=== PATIENT | female | born 1990 | race Caucasian/White ===

== ENCOUNTER 2016-08-15 10:37 | Emergency (ER) | payer OTHER ==
[~2016-08-15] VITALS: Ht 175.3 cm; Wt 66.2 kg
[2016-08-15 10:37] VITALS: BP 113/73
[2016-08-15] MEDS ORDERED: CLINDAMYCIN 900MG PREMIX 50 ML IV ONE (11:15)
[2016-08-15] MEDS ORDERED: DEXAMETHASONE SOD PHOS 10 MG/ML VIAL IM ONE (11:15)
[2016-08-15] MEDS ORDERED: IV NORMAL SALINE 1,000ML 1,000 ML IV ONE (11:15)
[2016-08-15 11:19] LABS: BASO # 0.1 x10^3/uL (0.0-0.2); BASO % 0 % (0-3); EOS % 0 % (0-3); HEMATOCRIT 40.9 % (36.0-47.0); HEMOGLOBIN 13.7 g/dL (12.0-15.5); LYMPH # 1.7 x10^3/uL (1.0-4.8); LYMPH % 9 % (24-48); MEAN CORPUSCULAR HEMOGLOBIN 30 pg (25-35); MEAN CORPUSCULAR HGB CONC 34 g/dL (31-37); MEAN CORPUSCULAR VOLUME 89 fL (79-100); MONO # 1.6 x10^3/uL (0.0-1.1); MONO % 8 % (0-9); NEUT # 16.9 x10^3uL (1.8-7.7); NEUT % 83 % (31-73); PLATELET COUNT 219 x10^3/uL (140-400); RED BLOOD COUNT 4.62 x10^6/uL (3.50-5.40); WHITE BLOOD COUNT 20.3 x10^3/uL (4.0-11.0)
--- NOTE | 2016-08-15 11:25 | ED.ADGEN ---
Past History Past Medical History: No Pertinent History Past Surgical History: Alcohol Use: None Drug Use: None Adult General Chief Complaint Chief Complaint Sore throat, painful swallowing HPI HPI Patient is a 25-year-old female with history of rheumatoid arthritis affecting her Joni recurrent tonsillitis who presents with persistent sore throat for the past 3 days. Patient was seen at an outside facility yesterday and diagnosed with bacterial pharyngitis. She reports her strep test was negative, but that she was placed on a Z-Andrey. She has had 2 doses of medication. She reports worsening throat pain today. She denies fever, drooling or hoarseness. Patient does have some with swallowing secondary to pain. Review of Systems Review of Systems Review symptoms as per history of present illness. All other review symptoms are negative. Current Medications Current Medications Current Medications Medications (Trade) Dose Ordered Sig/Sabrina Start Time Stop Time Status Last Admin Dose Admin Clindamycin Phosphate 50 ml @ 100 mls/hr 1X ONCE 08/15/16 11:15 08/15/16 11:44 08/15/16 11:19 100 MLS/HR Dexamethasone Sodium Phosphate (Decadron) 10 mg 1X ONCE 08/15/16 11:15 08/15/16 11:16 DC Sodium Chloride 1,000 ml @ 1,000 mls/hr 1X ONCE 08/15/16 11:15 08/15/16 12:14 08/15/16 11:18 1,000 MLS/HR Allergies Allergies Allergies Coded Allergies Type Severity Reaction Last Updated Verified No Known Drug Allergies 08/15/16 No Physical Exam Physical Exam Constitutional: She is, tearful, nontoxic. HENT: Normocephalic, atraumatic, bilateral external ears normal, limited ability to open mouth, right peritonsillar fullness/cellulitis, uvula midline. Eyes: PERRLA, EOMI, conjunctiva normal. Neck: Normal range of motion, supple, submandibular lymphadenopathy Cardiovascular: Tachycardic. Lungs & Thorax: Bilateral breath sounds clear to auscultation. Current Patient Data Vital Signs Vital Signs Date Time Temp Pulse Resp B/P (MAP) Pulse Ox O2 Delivery O2 Flow Rate FiO2 08/15/16 11:10 110 18 98 Room Air 08/15/16 10:37 98.2 EKG EKG [] Radiology/Procedures Radiology/Procedures [] Course & Med Decision Making Course & Med Decision Making Pertinent Labs and Imaging studies reviewed. (See chart for details) [Pharyngeal cellulitis with concern for right peritonsillar abscess. No ENT available at this facility. Patient's is a poor candidate for office follow-up given her failure to respond to outpatient therapy. IV clindamycin and Decadron given. Lab work culture and culture obtained. Patient accepted by Dr. Starla Fry to emergency department for surgical evaluation.] Final Impression Final Impression [] Problems: Dragon Disclaimer Dragon Disclaimer This electronic medical record was generated, in whole or in part, using a voice recognition dictation system. NANCY MATHEW DO Aug 15, 2016 11:25
[2016-08-15 11:34] LABS: C REACTIVE PROTEIN 159.8 mg/L (0-3.3); CALCIUM 8.9 mg/dL (8.5-10.1); CREATININE 0.9 mg/dL (0.6-1.0); GFR 75.1; POTASSIUM 3.6 mmol/L (3.5-5.1); TOTAL BILIRUBIN 0.7 mg/dL (0.2-1.0); TOTAL PROTEIN 8.2 g/dL (6.4-8.2)
[2016-08-15 11:45] LABS: PREG TEST PT QUAL NEGATIVE (NEG)
[2016-08-15] MEDS ORDERED: DEXAMETHASONE SOD PHOS 10 MG/ML VIAL IV ONE (11:45)
[2016-08-15 12:12] LABS: % BANDS 2 % (0-9); % LYMPHS 12 % (24-48); % MONOS 9 % (0-10); % SEGS 77 % (35-66)
[2016-08-15 12:13] LABS: PLT ESTIMATE ADEQUATE (ADEQUATE)
[2016-08-15] MEDS ORDERED: ONDANSETRON PF 4 MG/2 ML VIAL. IV ONE (12:45)
== END 2016-08-15 12:35 | disposition short-term general hospital (02) ==
LOC: ER 10:37
DX: J36 Peritonsillar abscess (principal)
CPT/HCPCS: 36415; 80053; 84703; 85007; 85027; 86140; 87040; 96365; 96375; 99285; J1100; J2405; J3490; J7030

== ENCOUNTER 2016-10-14 15:48 | Emergency (ER) | payer OTHER ==
[2016-10-14] MEDS ORDERED: IV NORMAL SALINE 1,000ML 1,000 ML IV SCH (16:06)
[2016-10-14] MEDS ORDERED: IV NORMAL SALINE 1,000ML 1,000 ML IV ONE (16:15)
--- NOTE | 2016-10-14 16:36 | PHYS DOC ---
Past History Past Medical History: No Pertinent History Past Surgical History: Alcohol Use: None Drug Use: None Adult General Chief Complaint Chief Complaint: NAUSEA/VOMITING HPI HPI Patient is a 25-year-old female who had a tonsillectomy on 10/10 at [facility] who states that she has not been able to keep anything down and is having a lot of pain ever since her surgery. She has a scopolamine patch on and is also using Zofran but continues to feel dizzy, very nauseated, and having vomiting. She is not able to keep any pain medicine down. Prior to her tonsillectomy, she had an abscess last month, she was originally seen here and transferred to , hospitalized at then sent home with oral antibiotics, then had her surgery this past Monday. Patient has a history of rheumatoid arthritis but it is in remission and she is not currently taking any medications for it. Review of Systems Review of Systems Constitutional: Denies fever or chills [] HENT: Complains of throat pain as in history of present illness Respiratory: Denies cough or shortness of breath [] GI: As in history of present illness : Urine is dark in color Musculoskeletal: Denies back pain or joint pain [] Neurologic: Complains of dizziness which sounds likely from dehydration Current Medications Current Medications Current Medications Medications (Trade) Dose Ordered Sig/Sabrina Start Time Stop Time Status Last Admin Dose Admin Ketorolac Tromethamine (Toradol) 30 mg 1X ONCE 10/14/16 16:40 10/14/16 16:41 Ondansetron HCl (Zofran) 4 mg 1X ONCE 10/14/16 16:40 10/14/16 16:41 Sodium Chloride 1,000 ml @ 1,000 mls/hr 1X ONCE 10/14/16 16:15 10/14/16 17:14 Allergies Allergies Allergies Coded Allergies Type Severity Reaction Last Updated Verified No Known Drug Allergies 08/15/16 No Physical Exam Physical Exam Constitutional: Well developed, well nourished, no acute distress, non-toxic appearance. [] HENT: Normocephalic, atraumatic, bilateral external ears normal, oropharynx moist, no oral exudates, nose normal. [] Eyes: PERRLA, EOMI, conjunctiva normal, no discharge. [] Neck: Normal range of motion, no tenderness, supple, no stridor. [] Cardiovascular:Heart rate regular rhythm, no murmur [] Lungs & Thorax: Bilateral breath sounds clear to auscultation [] Abdomen: Bowel sounds normal, soft, no tenderness, no masses, no pulsatile masses. [] Skin: Warm, dry, no erythema, no rash. [] Back: No tenderness, no CVA tenderness. [] Extremities: No tenderness, no cyanosis, no clubbing, ROM intact, no edema. [] Neurologic: Alert and oriented X 3, normal motor function, normal sensory function, no focal deficits noted. [] Psychologic: Affect normal, judgement normal, mood normal. [] Current Patient Data Vital Signs Vital Signs Date Time Temp Pulse Resp B/P (MAP) Pulse Ox O2 Delivery O2 Flow Rate FiO2 10/14/16 15:50 98.1 82 16 100 Room Air EKG EKG [] Radiology/Procedures Radiology/Procedures [] Course & Med Decision Making Course & Med Decision Making Pertinent Labs and Imaging studies reviewed. (See chart for details) 25-year-old female postop day 4 from tonsillectomy who is having vomiting, not able to keep anything down, is now dehydrated, and having pain. Discussed with the patient that we will give her some IV fluids, some IV pain and nausea medicines, and check some labs. She is agreeable to that plan. Labs unremarkable. The patient had 2 L of saline and IV Toradol and Zofran. I revisited the patient, she stated "I feel 10 times better than when I came in". She drank some apple juice. The patient is still trying to decide whether she feels good enough to go home. I told her to take her time and decide whether she wants to or not. [] Dragon Disclaimer Dragon Disclaimer This chart was dictated in whole or in part using Voice Recognition software in a busy, high-work load, and often noisy Emergency Department environment. It may contain unintended and wholly unrecognized errors or omissions. Departure Departure: Impression: Primary Impression: Post-tonsillectomy pain Additional Impressions: Dehydration Nausea & vomiting Disposition: 01 HOME, SELF-CARE Condition: IMPROVED Referrals: EDILBERTO ARMSTRONG MD (PCP) Patient Instructions: Dehydration, Adult, [id number] Additional Instructions: Frequent sips of fluids to stay hydrated. Ibuprofen 800 mg every 6-8 hours for pain. Take your first dose about 6 hours after your dose of Toradol here. For nausea, I have prescribed Phenergan. You may use this instead of Zofran or in addition if necessary. If necessary, return for more IV fluids for admission. Scripts Promethazine Hcl (PROMETHAZINE HCL) 25 Mg Tablet 1 TAB PO PRN Q6HRS for NAUSEA, #20 TAB Prov: JOE BUCK MD 10/14/16 Problem Qualifiers JOE BUCK MD Oct 14, 2016 16:36
[2016-10-14] MEDS ORDERED: KETOROLAC 30 MG/ML VIAL. IV ONE (16:40)
[2016-10-14] MEDS ORDERED: ONDANSETRON PF 4 MG/2 ML VIAL. IV ONE (16:40)
[2016-10-14 16:50] LABS: CALCIUM 8.2 mg/dL (8.5-10.1); CREATININE 0.8 mg/dL (0.6-1.0); POTASSIUM 3.7 mmol/L (3.5-5.1)
[2016-10-14 16:53] LABS: BASO % 0 % (0-3); EOS % 1 % (0-3); HEMATOCRIT 37.1 % (36.0-47.0); HEMOGLOBIN 12.6 g/dL (12.0-15.5); LYMPH % 32 % (24-48); MEAN CORPUSCULAR HEMOGLOBIN 30 pg (25-35); MEAN CORPUSCULAR HGB CONC 34 g/dL (31-37); MEAN CORPUSCULAR VOLUME 89 fL (79-100); MONO # 0.4 x10^3/uL (0.0-1.1); MONO % 6 % (0-9); NEUT # 3.8 x10^3uL (1.8-7.7); NEUT % 61 % (31-73); PLATELET COUNT 214 x10^3/uL (140-400); RED BLOOD COUNT 4.19 x10^6/uL (3.50-5.40); RED CELL DISTRIBUTION WIDTH 13.2 % (11.5-14.5); WHITE BLOOD COUNT 6.3 x10^3/uL (4.0-11.0)
[2016-10-14] MEDS ORDERED: PROM25TA10 PO (18:25)
[2016-10-14 18:40] VITALS: BP 103/70
== END 2016-10-14 18:45 | disposition home or self-care (01) ==
LOC: ER 15:48
DX: G89.18 Other acute postprocedural pain (principal); R07.0 Pain in throat; E86.0 Dehydration; R11.2 Nausea with vomiting, unspecified; M06.9 Rheumatoid arthritis, unspecified
CPT/HCPCS: 36415; 80048; 85025; 96361; 96374; 96375; 99284; J1885; J2405; J7030

== ENCOUNTER 2018-05-31 20:18 | Emergency (ER) | payer OTHER ==
[~2018-05-31] VITALS: Ht 175.3 cm; Wt 73.5 kg
[~2018-05-31 20:18] MED LIST: PROM25TA10 PO
--- NOTE | 2018-05-31 20:27 | ED.ADGEN ---
Past History Past Medical History: No Pertinent History Past Surgical History: Alcohol Use: None Drug Use: None Adult General Chief Complaint Chief Complaint ".. I have rheumatoid arthritis and my soles, shoes slipped..on some wood... and my knees gave out... The problem is that.. I am, about 16-19 weeks .... Have been doing taking meds to get .... I have had 1 previous .... And 1 miscarriage in the November and got again on January ... I have a high risk because of my rheumatoid arthritis.... I normally see Dr. Sherman for my OB... 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 Pt. has concerns ref. 19 wks gravid, because now se has cramping like contractions for threaten miscarry. Pt. has not had any bleeding or discharge. 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 One previous C section full term, , one miscarry end of 2017. Estimates Preg. since 2017. Follows with Dr. Sherman. Patient is on Remicade for her severe rheumatoid arthritis. Patient does not localized area of pain but is generalized across the abdomen. Pain did not start until a while after the fall. Onset of pain is approximately 1800 hrs. Patient plans on delivery at [facility]. Review of Systems Review of Systems Constitutional: Denies fever or chills [] Eyes: Denies change in visual acuity, redness, or eye pain [] HENT: Denies nasal congestion or sore throat [] Respiratory: Denies cough or shortness of breath [] Cardiovascular: No additional information not addressed in HPI [] GI: Generalized cramping abdominal pain, nausea,. Denies vomiting, bloody stools or diarrhea [] : Denies dysuria or hematuria [] Musculoskeletal: Denies back pain or joint pain [] Integument: Denies rash or skin lesions [] Neurologic: Denies headache, focal weakness or sensory changes [] Endocrine: Denies polyuria or polydipsia [] All other systems were reviewed and found to be within normal limits, except as documented in this note. Family History Family History Noncontributory to presentation Current Medications Current Medications Current Medications Medications (Trade) Dose Ordered Sig/Sabrina Start Time Stop Time Status Last Admin Dose Admin Diphenhydramine HCl (Benadryl) 25 mg 1X ONCE 06/01/18 00:30 06/01/18 00:31 DC 06/01/18 00:04 25 MG Lactated Ringer's 1,000 ml @ 1,000 mls/hr Q1H 05/31/18 20:39 05/31/18 21:38 DC 05/31/18 21:07 1,000 MLS/HR Ondansetron HCl (Zofran) 8 mg 1X ONCE 05/31/18 23:00 05/31/18 23:01 DC 05/31/18 22:59 8 MG Oxycodone/ Acetaminophen (Percocet 5/325) 2 tab 1X ONCE 05/31/18 23:00 05/31/18 23:01 DC 05/31/18 22:59 2 TAB See nursing for home meds Allergies Allergies Allergies Coded Allergies Type Severity Reaction Last Updated Verified No Known Drug Allergies 08/15/16 No Physical Exam Physical Exam Constitutional: Moderately acute distress, non-toxic appearance. [] HENT: Normocephalic, atraumatic, bilateral external ears normal, oropharynx moist, no oral exudates, nose normal. [] Eyes: PERRLA, EOMI, conjunctiva normal, no discharge. [] Neck: Normal range of motion, no tenderness, supple, no stridor. [] Cardiovascular:Heart rate regular rhythm, no murmur [] Lungs & Thorax: Bilateral breath sounds clear to auscultation [] Abdomen: Bowel sounds normal, soft, generalized tenderness, no masses, no pulsatile masses. [] On pelvic exam no obvious significant infectious discharge. Os is closed. Does have some mild cervical motion tenderness and right adnexal tenderness. Rectal nontender. Gravid. heart rate approximately 144 to 154 . No abdomen contractions noted on exam. Old C- section scar. Skin: Warm, dry, no erythema, no rash. [] Back: No tenderness, no CVA tenderness. [] Extremities: Bilateral knee tenderness and contusions, no cyanosis, no clubbing , ROM intact, no edema. Mild arthritic changes to hands. Cuffing of cuticle vessels. No psoas sign. Neurologic: Alert and oriented X 3, normal motor function, normal sensory function, no focal deficits noted. [] Psychologic: Affect very anxious, judgement normal, mood normal. [] Current Patient Data Vital Signs Vital Signs Date Time Temp Pulse Resp B/P (MAP) Pulse Ox O2 Delivery O2 Flow Rate FiO2 05/31/18 22:25 80 16 97/66 (76) 100 Room Air 05/31/18 20:26 97.9 Lab Results Laboratory Tests Test 05/31/18 21:04 05/31/18 22:12 White Blood Count 9.3 x10^3/uL (4.0-11.0) Red Blood Count 3.98 x10^6/uL (3.50-5.40) Hemoglobin 11.8 g/dL (12.0-15.5) L Hematocrit 34.6 % (36.0-47.0) L Mean Corpuscular Volume 87 fL (79-100) Mean Corpuscular Hemoglobin 30 pg (25-35) Mean Corpuscular Hemoglobin Concent 34 g/dL (31-37) Red Cell Distribution Width 14.5 % (11.5-14.5) Platelet Count 224 x10^3/uL (140-400) Neutrophils (%) (Auto) 66 % (31-73) Lymphocytes (%) (Auto) 28 % (24-48) Monocytes (%) (Auto) 5 % (0-9) Eosinophils (%) (Auto) 1 % (0-3) Basophils (%) (Auto) 0 % (0-3) Neutrophils # (Auto) 6.2 x10^3uL (1.8-7.7) Lymphocytes # (Auto) 2.6 x10^3/uL (1.0-4.8) Monocytes # (Auto) 0.5 x10^3/uL (0.0-1.1) Eosinophils # (Auto) 0.0 x10^3/uL (0.0-0.7) Basophils # (Auto) 0.0 x10^3/uL (0.0-0.2) Maternal Serum HCG Beta Subunit 39039 mIU/mL (0-6) H Sodium Level 140 mmol/L (136-145) Potassium Level 3.7 mmol/L (3.5-5.1) Chloride Level 107 mmol/L (98-107) Carbon Dioxide Level 24 mmol/L (21-32) Anion Gap 9 (6-14) Blood Urea Nitrogen 8 mg/dL (7-20) Creatinine 0.6 mg/dL (0.6-1.0) Estimated GFR (Cockcroft-Gault) 118.2 Glucose Level 73 mg/dL (70-99) Calcium Level 8.6 mg/dL (8.5-10.1) Magnesium Level 1.9 mg/dL (1.8-2.4) Total Bilirubin 0.3 mg/dL (0.2-1.0) Direct Bilirubin 0.1 mg/dL (0.0-0.2) Aspartate Amino Transferase (AST) 27 U/L (15-37) Alanine Aminotransferase (ALT) 15 U/L (14-59) Alkaline Phosphatase 33 U/L (46-116) L Total Protein 6.7 g/dL (6.4-8.2) Albumin 3.1 g/dL (3.4-5.0) L Urine Collection Type Unknown Urine Color Yellow Urine Clarity Hazy Urine pH 5.5 Urine Specific [place] 1.015 Urine Protein Neg (NEG-TRACE) Urine Glucose (UA) Neg mg/dL (NEG) Urine Ketones (Stick) 80 mg/dL (NEG) Urine Blood Neg (NEG) Urine Nitrite Neg (NEG) Urine Bilirubin Neg (NEG) Urine Urobilinogen Dipstick 0.2 mg/dL (0.2 mg/dL) Urine Leukocyte Esterase Neg (NEG) Urine RBC 0 /HPF (0-2) Urine WBC 0 /HPF (0-4) Urine Squamous Epithelial Cells Occ /LPF Urine Bacteria 0 /HPF (0-FEW) Urine Mucus Slight /LPF Urine Opiates Screen Neg (NEG) Urine Methadone Screen Neg (NEG) Urine Barbiturates Neg (NEG) Urine Phencyclidine Screen Neg (NEG) Urine Amphetamine/Methamphetamine Neg (NEG) Urine Benzodiazepines Screen Neg (NEG) Urine Cocaine Screen Neg (NEG) Urine Cannabinoids Screen Neg (NEG) Urine Ethyl Alcohol Neg (NEG) EKG EKG [] Radiology/Procedures Radiology/Procedures Ultrasound shows intrauterine fetus[]- No acute findings. FHR 160"s See formal report. Course & Med Decision Making Course & Med Decision Making Pertinent Labs and Imaging studies reviewed. (See chart for details) Patient to call her OB for follow-up in the morning. Discussed ultrasound completed here tonight given to patient. Patient resumed her meds as previous directed. Patient take Tylenol for pain. For marked pain may take Percocet. Must follow-up. Return if any concerns. This plan discussed with patient and significant other . Must follow up pending cultures. Abdomen pain had resolved at time of discharge. [] Final Impression Final Impression 1. Fall- slip 2. Contusions 3. Rheumatoid arthritis 4. Abd. Pain- [] 5. BHCG= 14,303 6. Blood Type A+ 7. Estimate Delivery Date 10/23/2018 +/- 10 day s Dragon Disclaimer Dragon Disclaimer This electronic medical record was generated, in whole or in part, using a voice recognition dictation system. Discharge Summary Visit Information Final Diagnosis Problems Medical Problems: (1) Abdominal pain affecting Status: Acute (2) Fall Status: Acute Brief Hospital Course Allergies Allergies Coded Allergies Type Severity Reaction Last Updated Verified No Known Drug Allergies 08/15/16 No Vital Signs Vital Signs Date Time Temp Pulse Resp B/P (MAP) Pulse Ox O2 Delivery O2 Flow Rate FiO2 05/31/18 22:25 80 16 97/66 (76) 100 Room Air 05/31/18 20:26 97.9 Lab Results Laboratory Tests Test 05/31/18 21:04 05/31/18 22:12 White Blood Count 9.3 x10^3/uL (4.0-11.0) Red Blood Count 3.98 x10^6/uL (3.50-5.40) Hemoglobin 11.8 g/dL (12.0-15.5) Hematocrit 34.6 % (36.0-47.0) Mean Corpuscular Volume 87 fL (79-100) Mean Corpuscular Hemoglobin 30 pg (25-35) Mean Corpuscular Hemoglobin Concent 34 g/dL (31-37) Red Cell Distribution Width 14.5 % (11.5-14.5) Platelet Count 224 x10^3/uL (140-400) Neutrophils (%) (Auto) 66 % (31-73) Lymphocytes (%) (Auto) 28 % (24-48) Monocytes (%) (Auto) 5 % (0-9) Eosinophils (%) (Auto) 1 % (0-3) Basophils (%) (Auto) 0 % (0-3) Neutrophils # (Auto) 6.2 x10^3uL (1.8-7.7) Lymphocytes # (Auto) 2.6 x10^3/uL (1.0-4.8) Monocytes # (Auto) 0.5 x10^3/uL (0.0-1.1) Eosinophils # (Auto) 0.0 x10^3/uL (0.0-0.7) Basophils # (Auto) 0.0 x10^3/uL (0.0-0.2) Maternal Serum HCG Beta Subunit 40210 mIU/mL (0-6) Sodium Level 140 mmol/L (136-145) Potassium Level 3.7 mmol/L (3.5-5.1) Chloride Level 107 mmol/L (98-107) Carbon Dioxide Level 24 mmol/L (21-32) Anion Gap 9 (6-14) Blood Urea Nitrogen 8 mg/dL (7-20) Creatinine 0.6 mg/dL (0.6-1.0) Estimated GFR (Cockcroft-Gault) 118.2 Glucose Level 73 mg/dL (70-99) Calcium Level 8.6 mg/dL (8.5-10.1) Magnesium Level 1.9 mg/dL (1.8-2.4) Total Bilirubin 0.3 mg/dL (0.2-1.0) Direct Bilirubin 0.1 mg/dL (0.0-0.2) Aspartate Amino Transf (AST/SGOT) 27 U/L (15-37) Alanine Aminotransferase (ALT/SGPT) 15 U/L (14-59) Alkaline Phosphatase 33 U/L (46-116) Total Protein 6.7 g/dL (6.4-8.2) Albumin 3.1 g/dL (3.4-5.0) Urine Collection Type Unknown Urine Color Yellow Urine Clarity Hazy Urine pH 5.5 Urine Specific [place] 1.015 Urine Protein Neg (NEG-TRACE) Urine Glucose (UA) Neg mg/dL (NEG) Urine Ketones (Stick) 80 mg/dL (NEG) Urine Blood Neg (NEG) Urine Nitrite Neg (NEG) Urine Bilirubin Neg (NEG) Urine Urobilinogen Dipstick 0.2 mg/dL (0.2 mg/dL) Urine Leukocyte Esterase Neg (NEG) Urine RBC 0 /HPF (0-2) Urine WBC 0 /HPF (0-4) Urine Squamous Epithelial Cells Occ /LPF Urine Bacteria 0 /HPF (0-FEW) Urine Mucus Slight /LPF Urine Opiates Screen Neg (NEG) Urine Methadone Screen Neg (NEG) Urine Barbiturates Neg (NEG) Urine Phencyclidine Screen Neg (NEG) Urine Amphetamine/Methamphetamine Neg (NEG) Urine Benzodiazepines Screen Neg (NEG) Urine Cocaine Screen Neg (NEG) Urine Cannabinoids Screen Neg (NEG) Urine Ethyl Alcohol Neg (NEG) Brief Hospital Course Ms. Tompkins is a 27 old female who presented with rheumatoid arthritis and abdomen pain and approximately 19 weeks . Pt. to call Dr. Sherman office this morning. If any further problems go to [facility]. Discharge Information Condition at Discharge: Improved, Stable Disposition/Orders: D/C to Home Dischare Medications Current Medications Lactated Ringer's 1,000 ml @ 1,000 mls/hr Q1H IV Last administered on at 21:07; Admin Dose 1,000 MLS/HR; Start 05/31/18 at 20:39; Stop 05/31/18 at 21:38; Status DC Oxycodone/ Acetaminophen (Percocet 5/325) 2 tab 1X ONCE PO Last administered on 05/31/18at 22:59; Admin Dose 2 TAB; Start 05/31/18 at 23:00; Stop 05/31/18 at 23:01; Status DC Ondansetron HCl (Zofran) 8 mg 1X ONCE IV Last administered on 05/31/18at 22:59 ; Admin Dose 8 MG; Start 05/31/18 at 23:00; Stop 05/31/18 at 23:01; Status DC Diphenhydramine HCl (Benadryl) 25 mg 1X ONCE IVP Last administered on at 00:04; Admin Dose 25 MG; Start 06/01/18 at 00:30; Stop 06/01/18 at 00:31; Status DC Active Scripts Active Percocet 5-325 Mg Tablet (Oxycodone Hcl/Acetaminophen) 1 Each Tablet 1 Tab PO PRN Q6HRS PRN Promethazine Hcl 25 Mg Tablet 1 Tab PO PRN Q6HRS Dragon Disclaimer This chart was dictated in whole or in part using Voice Recognition software in a busy, high-work load, and often noisy Emergency Department environment. It may contain unintended and wholly unrecognized errors or omissions. RAUL BOLIVAR MD May 31, 2018 20:26
[2018-05-31] MEDS ORDERED: IV RINGERS SOLUTION,LACTATED 1,000 ML IV SCH (20:39)
[2018-05-31 21:32] LABS: BASO % 0 % (0-3); EOS % 1 % (0-3); HEMATOCRIT 34.6 % (36.0-47.0); HEMOGLOBIN 11.8 g/dL (12.0-15.5); LYMPH # 2.6 x10^3/uL (1.0-4.8); LYMPH % 28 % (24-48); MEAN CORPUSCULAR HEMOGLOBIN 30 pg (25-35); MEAN CORPUSCULAR HGB CONC 34 g/dL (31-37); MEAN CORPUSCULAR VOLUME 87 fL (79-100); MONO # 0.5 x10^3/uL (0.0-1.1); MONO % 5 % (0-9); NEUT # 6.2 x10^3uL (1.8-7.7); NEUT % 66 % (31-73); PLATELET COUNT 224 x10^3/uL (140-400); RED BLOOD COUNT 3.98 x10^6/uL (3.50-5.40); RED CELL DISTRIBUTION WIDTH 14.5 % (11.5-14.5); WHITE BLOOD COUNT 9.3 x10^3/uL (4.0-11.0)
[2018-05-31 22:12] LABS: ALBUMIN 3.1 g/dL (3.4-5.0); CALCIUM 8.6 mg/dL (8.5-10.1); CREATININE 0.6 mg/dL (0.6-1.0); DIRECT BILIRUBIN 0.1 mg/dL (0.0-0.2); GFR 118.2; MAGNESIUM 1.9 mg/dL (1.8-2.4); POTASSIUM 3.7 mmol/L (3.5-5.1); TOTAL BILIRUBIN 0.3 mg/dL (0.2-1.0); TOTAL PROTEIN 6.7 g/dL (6.4-8.2)
[2018-05-31 22:25] VITALS: BP 97/66
[2018-05-31 22:35] LABS: AMPHETAMINE/METHAMPHETAMINE NEG (NEG); BARBITURATES NEG (NEG); BENZODIAZEPINES NEG (NEG); CANNABINOIDS NEG (NEG); COCAINE NEG (NEG); METHADONE NEG (NEG); OPIATES NEG (NEG); PHENCYCLIDINE NEG (NEG)
[2018-05-31 22:42] LABS: BACTERIA,URINE 0 /HPF (0-FEW); BILIRUBIN,URINE NEG (NEG); CLARITY,URINE HAZY; COLOR,URINE YELLOW; GLUCOSE,URINE NEG (NEG); NITRITE,URINE NEG (NEG); RBC,URINE 0 /HPF (0-2); SQUAMOUS EPITHELIAL CELL,UR OCC /LPF; UROBILINOGEN,URINE 0.2 mg/dL (0.2 mg/dL); WBC,URINE 0 /HPF (0-4)
[2018-05-31] MEDS ORDERED: ONDANSETRON PF 4 MG/2 ML VIAL. IV ONE (23:00)
[2018-05-31] MEDS ORDERED: oxyCODONE/APAP 5/325 1 TAB TABLET PO ONE (23:00)
--- NOTE | 2018-05-31 23:36 | RAD ---
OB ultrasound greater than 14 weeks 05/31/2018 Clinical History: Second trimester . Fall earlier this evening onto abdomen and right side. Abdominal/pelvic cramping. Technique: A real-time ultrasound examination of the gravid uterus was performed. Multiple images were obtained. Findings: No previous studies are available for comparison. There is a single living IUP. The fetus is in a cephalic position. cardiac and somatic activity is seen. The heart rate is 163 beats per minutes. The maternal cervix is closed. It measures 4.5 cm in length. The placenta is in anterior position. No abnormality is seen. The amniotic fluid volume is within normal limits. The following measurements were obtained: BPD 4.24cm 18 weeks 6 days HC 16.81 cm 19weeks 3 days AC 14.36 cm 19weeks 5 days FL 3.01 cm 19 weeks 2 days The estimated gestational age by ultrasound is 19 weeks two days plus or minus a standard deviation of 10 days. The estimated date of delivery by ultrasound is 10/23/2018. No abnormality is seen. Specifically the stomach, bladder, kidneys, 3 vessel cord and cord insertion, four-chamber heart, cisterna magna, cerebellum, spine and extremities are well-visualized and within normal limits. Impression: Single living IUP with an estimated gestational age by ultrasound of 19 weeks 2 days +/- a standard deviation of 10 days. The estimated date of delivery by ultrasound is 10/23/2018. Electronically signed by: Kelvin Devi MD (05/31/2018 11:33 PM) [facility]
[2018-06-01] MEDS ORDERED: OXYC1TAB15 PO (00:07)
[2018-06-01] MEDS ORDERED: diphenhydrAMINE 50 MG/ML VIAL IVP ONE (00:30)
[2018-06-04 20:06] LABS: CHLAMYDIA PROBE Negative (Negative)
== END 2018-06-01 00:27 | disposition home or self-care (01) ==
LOC: ER 20:18
DX: O9A.212 Injury, poisoning and certain other consequences of external causes complicating pregnancy, second trimester (principal); S80.02XA Contusion of left knee, initial encounter; S80.01XA Contusion of right knee, initial encounter; R10.84 Generalized abdominal pain; M06.9 Rheumatoid arthritis, unspecified; Z3A.19 19 weeks gestation of pregnancy; W01.0XXA Fall on same level from slipping, tripping and stumbling without subsequent striking against object, initial encounter; Y93.89 Activity, other specified; Y92.89 Other specified places as the place of occurrence of the external cause; Y99.8 Other external cause status
CPT/HCPCS: 36415; 76805; 80048; 80076; 80307; 81001; 83735; 84443; 84702; 85025; 86592; 86703; 86705; 86709; 86803; 86900; 86901; 87340; 87491; 87591; 96374; 96375; 99284; J1200; J2405; J7120